=== PATIENT | female | born 1945 | race Hispanic/Latino ===

== ENCOUNTER → 2018-03-20 | Outpatient (CLI) | payer OTHER ==
[~2018-03-20] MED LIST: AEC81 PO; CARBIDOPA-LEVODOPA PO; DIAZ2TAB3 PO; DROX100C PO; IOPAMIDOL-370 75 ML VIAL IV ONE
== END | disposition home or self-care (01) ==
LOC: OIH 10:25
PROVIDERS: ATTEND Internal Medicine
DX: N28.1 Cyst of kidney, acquired (principal); Z90.49 Acquired absence of other specified parts of digestive tract
CPT/HCPCS: 74170; Q9967

== ENCOUNTER → 2018-06-29 | Outpatient (CLI) | payer OTHER ==
[~2018-06-29] MED LIST changes: -IOPAMIDOL-370 75 ML VIAL IV ONE
== END | disposition home or self-care (01) ==
LOC: RAH 13:48
PROVIDERS: ATTEND Internal Medicine
DX: M47.896 Other spondylosis, lumbar region (principal); M85.88 Other specified disorders of bone density and structure, other site; M51.36 Other intervertebral disc degeneration, lumbar region; G57.02 Lesion of sciatic nerve, left lower limb; M19.90 Unspecified osteoarthritis, unspecified site; K21.9 Gastro-esophageal reflux disease without esophagitis; Z90.49 Acquired absence of other specified parts of digestive tract
CPT/HCPCS: 72100

== ENCOUNTER 2019-07-23 06:46 | Day surgery (SDC) | payer OTHER ==
[2019-07-22 15:53] LABS: BASOPHILS % (AUTO) 0.7 % (0.0-5.0); EOSINOPHILS % (AUTO) 1.3 % (0.0-8.0); LYMPHOCYTES % (AUTO) 22.1 % (21.0-51.0); MEAN CORPUSCULAR HEMOGLOBIN 32.7 pg (27.0-33.0); MEAN CORPUSCULAR HGB CONC 33.9 g/dL (32.0-36.0); MEAN CORPUSCULAR VOLUME 96.4 fL (79-99); MONOCYTES % (AUTO) 8.8 % (3.0-13.0); NEUTROPHILS % (AUTO) 67.1 % (40.0-77.0); NUCLEATED RED BLOOD CELLS 0.1 % (0.0-0.19); PLATELET COUNT (AUTO) 288 K/uL (130-400); RED BLOOD CELL COUNT(AUTO) 4.15 MIL/uL (4.00-5.50); RED CELL DISTRIBUTION WIDTH 14.3 % (11.0-15.5); WHITE BLOOD COUNT (AUTO) 7.6 K/uL (4.8-10.8)
[2019-07-22 16:05] LABS: CREATININE 0.7 mg/dL (0.5-1.5); POTASSIUM 4.1 mmol/L (3.5-5.1)
[2019-07-22 16:23] VITALS: BP 132/51
[2019-07-22] MEDS: CEFAZOLIN SODIUM 1 GM VIAL IVP SCH (17:45)
--- NOTE | 2019-07-22 18:13 | NUR ---
NOTE PT TAKING ANTIBIOTIC (CANNOT RECALL NAME) PRESCRIBED BY PCP FOR FREQ URINATION, ?UTI. PT AFEBRILE, WBC 7.6. DR. FERRARI NOTIFIED. NO FURTHER ORDERS GIVEN, MAY PROCEED WITH PLANNED PROCEDURE.
[2019-07-23] VITALS (14 sets, daily range): BP systolic 112–146; BP diastolic 48–73
[~2019-07-23] VITALS: Ht 149.9 cm; Wt 62.0 kg
[~2019-07-23 06:46] MED LIST changes: +ANTIBIOTIC PO; +CARB-38 PO; -CARBIDOPA-LEVODOPA PO; -DIAZ2TAB3 PO; +DIGO125T87 PO; +LEVO25TA54 PO; +LINA72CA PO; +ROTI1PAT10 TD
[2019-07-23] MEDS ORDERED: LACTATED RINGERS 1000ML 1,000 ML IV ONE (07:13)
[2019-07-23] MEDS ORDERED: AMOX1TAB15 PO (07:58)
[2019-07-23] MEDS ORDERED: GLYCOPYRROLATE 1 MG/5 ML SYRINGE ONE (09:28)
[2019-07-23] MEDS ORDERED: SUCCINYLCHOLINE 200MG/10ML SYR ONE (09:28)
[2019-07-23] MEDS ORDERED: PROPOFOL 10 MG/ML 20ML VIAL IV ONE (09:28)
[2019-07-23] MEDS ORDERED: LIDOCAINE PF 2% 5ML ABBOJECT ONE (09:28)
[2019-07-23] MEDS ORDERED: NEOSTIGMINE 5MG/5ML SYR IV ONE (09:28)
[2019-07-23] MEDS ORDERED: DEXAMETHASONE SOD PHOSPHATE 10MG/ML 1ML VIAL ONE (09:28)
[2019-07-23] MEDS ORDERED: FENTANYL CITRATE PF 50 MCG/1 ML 2ML VIAL ONE (09:29)
[2019-07-23] MEDS ORDERED: ROCURONIUM 10MG/1ML SYR 10 MG/ML ML ONE (09:29)
[2019-07-23] MEDS: CEFAZOLIN SODIUM 1 GM VIAL IVP SCH (09:30)
[2019-07-23] MEDS ORDERED: MELO-106 PO (10:43)
[2019-07-23] MEDS ORDERED: TRAM1TAB PO (10:43)
[2019-07-23] MEDS ORDERED: MEPERIDINE-PF 25 MG/ML SYG ONE (11:02)
--- NOTE | 2019-07-23 11:33 | NUR ---
ASSESSMENT RECEIVED PT FROM PACU STAFF HANSA VILLA. PT AAOX3. DRSG TO RIGHT KNEE DRY AND INTACT. NO BLEEDING, OOZING NOTED TO SITE. ICE PACK APPLIED TO RIGHT KNEE. AT BEDSIDE.
--- NOTE | 2019-07-23 12:20 | NUR ---
DISCHARGE ORAL AND WRITTEN DISCHARGE INSTRUCTIONS GIVEN TO PT AND PTS ALONG WITH PRESCRIPTION. DRSG TO RIGHT KNEE DRY AND INTACT. NO BLEEDING, OOZING NOTED TO SITE. NO OTHER QUESTIONS AT THIS TIME.
== END 2019-07-23 12:25 | disposition home or self-care (01) ==
LOC: DAH 06:46
PROVIDERS: ATTEND Orthopaedic Surgery
DX: M23.8X1 Other internal derangements of right knee (principal); M23.221 Derangement of posterior horn of medial meniscus due to old tear or injury, right knee; K21.9 Gastro-esophageal reflux disease without esophagitis; G20 Parkinson's disease; G89.29 Other chronic pain; I48.0 Paroxysmal atrial fibrillation; Z79.82 Long term (current) use of aspirin; Z79.899 Other long term (current) drug therapy; Z90.49 Acquired absence of other specified parts of digestive tract; Z98.890 Other specified postprocedural states
CPT/HCPCS: 29881; 36415; 80048; 85025; A4215; A4221; A4222; A4223; A4606; A4649 ×2; A4663; A4930; A5120; A6223; J0330; J0690; J1100; J2001; J2175; J2704; J2710; J3010; J3490; J7120

== ENCOUNTER → 2020-01-14 | Outpatient (CLI) | payer OTHER ==
[~2020-01-14] MED LIST changes: +AMINOPHYLLINE 250MG/10 ML VIAL IV SCH; +AMOX1TAB15 PO; -ANTIBIOTIC PO; +DIGO125T71 PO; -DIGO125T87 PO; +MELO-106 PO; +REGADENOSON 0.4 MG/5 ML PF SYG IVP SCH; +TRAM1TAB PO
[2020-01-14 10:37] VITALS: BP 129/64
[2020-01-14 10:41] VITALS: BP 125/65
[2020-01-14 10:42] VITALS: BP 129/68
[2020-01-14 10:44] VITALS: BP 125/70
--- NOTE | 2020-01-14 11:58 | NUR ---
UPON COMPLETION OF LEXISCAN PROCEDURE, PT CONTINUED WITH C/O PRESSURE TO CHEST AND THROAT. AMINOPHYLLINE 50 MG WAS GIVEN SLOW IV PUSH PER PROTOCOL AT 1041. OF 1045 PT REPORTS ALL PRESSURE TO THROAT AND CHEST IS GONE AND IS FEELING MUCH BETTER.
== END | disposition home or self-care (01) ==
LOC: SHCH 08:17
PROVIDERS: ATTEND Internal Medicine Cardiovascular Disease
DX: I20.8 Other forms of angina pectoris (principal)
CPT/HCPCS: 78452; 93017; 96374; A9500 ×2; J0280; J2785

== ENCOUNTER → 2021-05-11 | Outpatient (CLI) | payer OTHER ==
[~2021-05-11] MED LIST changes: -AMINOPHYLLINE 250MG/10 ML VIAL IV SCH; -REGADENOSON 0.4 MG/5 ML PF SYG IVP SCH
== END | disposition home or self-care (01) ==
LOC: SHCH 12:30
PROVIDERS: ATTEND Internal Medicine Cardiovascular Disease
DX: I48.0 Paroxysmal atrial fibrillation (principal)
CPT/HCPCS: 93306; 93356

== ENCOUNTER → 2021-05-14 | Outpatient (CLI) | payer OTHER | END | disposition home or self-care (01) | LOC: SHCH 14:04 | PROVIDERS: ATTEND Internal Medicine Cardiovascular Disease | DX: I87.2 Venous insufficiency (chronic) (peripheral) (principal) | CPT/HCPCS: 93970 ==

== ENCOUNTER 2021-10-11 06:26 | Day surgery (SDC) | payer OTHER ==
[2021-10-10 12:33] LABS: HEMATOCRIT 41.2 % (36-48); LYMPHOCYTES % (AUTO) 34.7 % (21.0-51.0); MEAN CORPUSCULAR HEMOGLOBIN 31.4 pg (27.0-33.0); MEAN CORPUSCULAR VOLUME 98.1 fL (79-99); MONOCYTES % (AUTO) 11.5 % (3.0-13.0); NEUTROPHILS % (AUTO) 51.5 % (40.0-77.0); PLATELET COUNT (AUTO) 350 K/uL (130-400); RED CELL DISTRIBUTION WIDTH 13.5 % (11.0-15.5); WHITE BLOOD COUNT (AUTO) 5.9 K/uL (4.8-10.8)
[2021-10-10 12:35] VITALS: BP 138/53
[2021-10-10 12:54] LABS: CREATININE 0.6 mg/dL (0.5-1.5); POTASSIUM 4.6 mmol/L (3.5-5.1)
[~2021-10-11] VITALS: Ht 152.4 cm; Wt 64.9 kg
[2021-10-11] VITALS (15 sets, daily range): BP systolic 124–149; BP diastolic 55–74
[~2021-10-11 06:26] MED LIST changes: -AMOX1TAB15 PO; -DROX100C PO; +ENTA200T5 PO; +EZET10TA48 PO; -LINA72CA PO; -MELO-106 PO; -TRAM1TAB PO; +[UNRECOGNIZED DRUG - CODE] PO
[2021-10-11] MEDS ORDERED: LACTATED RINGERS 1000ML 1,000 ML IV ONE (07:45)
[2021-10-11] MEDS ORDERED: CEFAZOLIN SODIUM 1 GM VIAL IVP ONE (08:00)
[2021-10-11] MEDS ORDERED: NEOSTIGMINE 5MG/5ML SYR IV ONE (09:03)
[2021-10-11] MEDS ORDERED: ONDANSETRON 4MG INJ ONE (09:03)
[2021-10-11] MEDS ORDERED: SUCCINYLCHOLINE CHLORIDE 20 MG/ML 10 ML VIAL ONE ×2 (09:03→09:04)
[2021-10-11] MEDS ORDERED: DEXAMETHASONE SOD PHOSPHATE 10MG/ML 1ML VIAL ONE (09:03)
[2021-10-11] MEDS ORDERED: MIDAZOLAM HCL 1 MG/ML 2ML VIAL ONE (09:03)
[2021-10-11] MEDS ORDERED: PROPOFOL 10 MG/ML 20ML VIAL IV ONE (09:03)
[2021-10-11] MEDS ORDERED: GLYCOPYRROLATE 1 MG/5 ML SYRINGE ONE (09:03)
[2021-10-11] MEDS ORDERED: FENTANYL CITRATE PF 50 MCG/1 ML 2ML VIAL ONE (09:03)
[2021-10-11] MEDS ORDERED: LIDOCAINE PF 100MG/5ML (2%) SYRINGE 5ML ONE ×2 (09:03→09:04)
[2021-10-11] MEDS ORDERED: ROCURONIUM 10MG/1ML SYR 10 MG/ML ML ONE (09:04)
[2021-10-11] MEDS ORDERED: CEPH500B PO (10:02)
[2021-10-11] MEDS ORDERED: ACET1TAB25 PO (10:02)
== END 2021-10-11 11:26 | disposition home or self-care (01) ==
LOC: DAH 06:26
PROVIDERS: ATTEND Orthopaedic Surgery
DX: M25.562 Pain in left knee (principal); M23.222 Derangement of posterior horn of medial meniscus due to old tear or injury, left knee; M94.262 Chondromalacia, left knee; M17.11 Unilateral primary osteoarthritis, right knee; K21.9 Gastro-esophageal reflux disease without esophagitis; G20 Parkinson's disease; Z79.82 Long term (current) use of aspirin; Z79.899 Other long term (current) drug therapy; Z72.89 Other problems related to lifestyle; Z90.49 Acquired absence of other specified parts of digestive tract; Z98.890 Other specified postprocedural states; Z90.710 Acquired absence of both cervix and uterus; Z20.822 Contact with and (suspected) exposure to COVID-19
CPT/HCPCS: 29881; 36415; 80048; 85025; 87635; A4215; A4221; A4222; A4223; A4649; A4663; A4930 ×2; A5120; A6223; C9803; J0330 ×2; J0690 ×2; J1100; J2001 ×2; J2405; J2704; J2710; J3010; J3490; J7120; J2250

== ENCOUNTER → 2022-12-06 | Outpatient (CLI) | payer OTHER | END | disposition home or self-care (01) | LOC: SHCH 10:45 | PROVIDERS: ATTEND Internal Medicine Cardiovascular Disease | DX: I87.2 Venous insufficiency (chronic) (peripheral) (principal); M79.605 Pain in left leg; M79.604 Pain in right leg | CPT/HCPCS: 93970 ==

== ENCOUNTER 2023-01-20 06:15 | Day surgery (SDC) | payer OTHER ==
[2023-01-16 12:45] LABS: BASOPHILS % (AUTO) 0.8 % (0.0-5.0); EOSINOPHILS % (AUTO) 1.5 % (0.0-8.0); HEMATOCRIT 38.7 % (36-48); LYMPHOCYTES % (AUTO) 24.8 % (21.0-51.0); MEAN CORPUSCULAR HEMOGLOBIN 32.9 pg (27.0-33.0); MEAN CORPUSCULAR HGB CONC 33.3 g/dL (32.0-36.0); MEAN CORPUSCULAR VOLUME 98.7 fL (79-99); MONOCYTES % (AUTO) 11.8 % (3.0-13.0); NEUTROPHILS % (AUTO) 60.8 % (40.0-77.0); PLATELET COUNT (AUTO) 284 K/uL (130-400); RED BLOOD CELL COUNT(AUTO) 3.92 MIL/uL (4.00-5.50); RED CELL DISTRIBUTION WIDTH 13.2 % (11.0-15.5); WHITE BLOOD COUNT (AUTO) 6.2 K/uL (4.8-10.8)
[2023-01-16 12:48] VITALS: BP 126/61
[2023-01-16 12:50] LABS: CREATININE 0.7 mg/dL (0.5-1.5); POTASSIUM 4.5 mmol/L (3.5-5.1)
[2023-01-16 12:53] LABS: INR 0.97 (0.85-1.15); PROTHROMBIN TIME 10.6 SEC (9.6-11.6)
[2023-01-16 12:54] LABS: PARTIAL THROMBOPLASTIN TIME 27.5 SEC (26.3-35.5)
[~2023-01-20] VITALS: Ht 152.4 cm; Wt 67.1 kg
[~2023-01-20 06:15] MED LIST changes: -ROTI1PAT10 TD
[2023-01-20 06:24] VITALS: BP 120/62
[2023-01-20] MEDS ORDERED: 0.9%NACL 1000ML 1,000 ML IV ONE (07:08)
[2023-01-20] MEDS ORDERED: MIDAZOLAM HCL 1 MG/ML 2ML VIAL ONE (08:46)
[2023-01-20] MEDS ORDERED: MEPERIDINE-PF 25 MG/ML SYG ONE (08:46)
[2023-01-20] MEDS ORDERED: LIDOCAINE HCL 400MG/20ML VIAL ONE (08:46)
[2023-01-20] MEDS ORDERED: BUPIVACAINE/PF 0.25% 10ML VIAL IJ ONE (09:34)
[2023-01-20 10:00] VITALS: BP 152/65
[2023-01-20 10:15] VITALS: BP 146/66
[2023-01-20 10:30] VITALS: BP 139/61
== END 2023-01-20 10:30 | disposition home or self-care (01) ==
LOC: DAH 06:15
PROVIDERS: ATTEND Internal Medicine Cardiovascular Disease
DX: R00.2 Palpitations (principal); R06.02 Shortness of breath; I47.1 Supraventricular tachycardia; R55 Syncope and collapse; I48.0 Paroxysmal atrial fibrillation; G20 Parkinson's disease; I87.2 Venous insufficiency (chronic) (peripheral); K21.9 Gastro-esophageal reflux disease without esophagitis; Z98.890 Other specified postprocedural states; Z90.49 Acquired absence of other specified parts of digestive tract; Z90.710 Acquired absence of both cervix and uterus; Z90.721 Acquired absence of ovaries, unilateral; Z82.49 Family history of ischemic heart disease and other diseases of the circulatory system; Z83.3 Family history of diabetes mellitus; Z82.61 Family history of arthritis; Z79.01 Long term (current) use of anticoagulants
CPT/HCPCS: 80048; 85025; 85610; 85730; 36415; 93005; 33285; A4649; C1764; J3490 ×2; J7030; J2250; J2175; A4215; A6402; A4222; A4221; A4663; A4216; A6206; A4606; A4223 ×3

== ENCOUNTER → 2023-01-25 | Outpatient (CLI) | payer OTHER | END | disposition home or self-care (01) | LOC: SHCH 09:55 | PROVIDERS: ATTEND Internal Medicine Cardiovascular Disease | DX: I35.1 Nonrheumatic aortic (valve) insufficiency (principal); I51.7 Cardiomegaly; R94.31 Abnormal electrocardiogram [ECG] [EKG] | CPT/HCPCS: 93306 ==

== ENCOUNTER → 2023-03-10 | Outpatient (CLI) | payer OTHER | END | disposition home or self-care (01) | LOC: SHCH 13:12 | PROVIDERS: ATTEND Internal Medicine Cardiovascular Disease | DX: I87.2 Venous insufficiency (chronic) (peripheral) (principal); Z98.890 Other specified postprocedural states | CPT/HCPCS: 93971 ==

== ENCOUNTER → 2023-05-09 | Outpatient (CLI) | payer OTHER ==
[2023-05-09 15:18] LABS: BASOPHILS # (AUTO) 0.03 K/uL (0.00-0.20); BASOPHILS % (AUTO) 0.4 % (0.0-5.0); EOSINOPHILS # (AUTO) 0.09 K/uL (0.00-0.70); EOSINOPHILS % (AUTO) 1.3 % (0.0-8.0); HEMATOCRIT 38.6 % (36-48); IMMATURE GRANULOCYTE ABSOLUTE 0.02 K/uL (0-1); LYMPHOCYTES # (AUTO) 1.6 K/uL (1.0-4.8); LYMPHOCYTES % (AUTO) 24.5 % (21.0-51.0); MEAN CORPUSCULAR HEMOGLOBIN 32.3 pg (27.0-33.0); MEAN CORPUSCULAR HGB CONC 32.4 g/dL (32.0-36.0); MEAN CORPUSCULAR VOLUME 99.7 fL (79-99); MONOCYTES # (AUTO) 0.6 K/uL (0.1-1.0); MONOCYTES % (AUTO) 8.7 % (3.0-13.0); NEUTROPHILS # (AUTO) 4.3 K/uL (1.8-7.7); NEUTROPHILS % (AUTO) 64.8 % (40.0-77.0); PLATELET COUNT (AUTO) 283 K/uL (130-400); RED BLOOD CELL COUNT(AUTO) 3.87 MIL/uL (4.00-5.50); RED CELL DISTRIBUTION WIDTH 13.2 % (11.0-15.5); WHITE BLOOD COUNT (AUTO) 6.7 K/uL (4.8-10.8)
[2023-05-09 15:26] LABS: CREATININE 0.8 mg/dL (0.5-1.5)
[2023-05-09 15:31] LABS: INR 0.93 (0.85-1.15); PROTHROMBIN TIME 10.8 SEC (9.6-11.6)
[2023-05-09 15:33] LABS: PARTIAL THROMBOPLASTIN TIME 27.8 SEC (26.3-35.5)
== END | disposition home or self-care (01) ==
LOC: LAB 13:39
PROVIDERS: ATTEND Internal Medicine Cardiovascular Disease
DX: I87.1 Compression of vein (principal); I87.2 Venous insufficiency (chronic) (peripheral); M79.89 Other specified soft tissue disorders; R60.0 Localized edema
CPT/HCPCS: 36415; 80048; 85025; 85610; 85730

== ENCOUNTER → 2023-11-05 | Outpatient (CLI) | payer OTHER ==
[2023-11-05 16:13] LABS: BASOPHILS # (AUTO) 0.05 K/uL (0.00-0.20); BASOPHILS % (AUTO) 0.7 % (0.0-5.0); EOSINOPHILS # (AUTO) 0.08 K/uL (0.00-0.70); EOSINOPHILS % (AUTO) 1.1 % (0.0-8.0); IMMATURE GRANULOCYTE ABSOLUTE 0.03 K/uL (0-1); LYMPHOCYTES # (AUTO) 1.9 K/uL (1.0-4.8); LYMPHOCYTES % (AUTO) 25.5 % (21.0-51.0); MEAN CORPUSCULAR HEMOGLOBIN 32.2 pg (27.0-33.0); MEAN CORPUSCULAR HGB CONC 31.4 g/dL (32.0-36.0); MEAN CORPUSCULAR VOLUME 102.4 fL (79-99); MONOCYTES # (AUTO) 0.7 K/uL (0.1-1.0); MONOCYTES % (AUTO) 10.2 % (3.0-13.0); NEUTROPHILS # (AUTO) 4.5 K/uL (1.8-7.7); NEUTROPHILS % (AUTO) 62.1 % (40.0-77.0); PLATELET COUNT (AUTO) 319 K/uL (130-400); RED CELL DISTRIBUTION WIDTH 12.9 % (11.0-15.5); WHITE BLOOD COUNT (AUTO) 7.3 K/uL (4.8-10.8)
[2023-11-05 16:23] LABS: INR <= 0.93 (0.85-1.15); PROTHROMBIN TIME 10.5 SEC (9.6-11.6)
[2023-11-05 16:24] LABS: PARTIAL THROMBOPLASTIN TIME 27.5 SEC (26.3-35.5)
[2023-11-05 16:27] LABS: CREATININE 0.7 mg/dL (0.5-1.5); POTASSIUM 5.1 mmol/L (3.5-5.1)
== END | disposition home or self-care (01) ==
LOC: LAB 13:18
PROVIDERS: ATTEND Internal Medicine Cardiovascular Disease
DX: I87.2 Venous insufficiency (chronic) (peripheral) (principal); I87.1 Compression of vein; R60.9 Edema, unspecified; M79.89 Other specified soft tissue disorders; Z79.02 Long term (current) use of antithrombotics/antiplatelets; Z79.899 Other long term (current) drug therapy
CPT/HCPCS: 36415; 80048; 85025; 85610; 85730

== ENCOUNTER → 2024-12-18 | Outpatient (CLI) | payer OTHER ==
--- NOTE | 2024-12-19 09:04 | HMCSR ---
APPROVED REPORT EXAM: Two-dimensional and M-mode echocardiogram with Doppler and color Doppler. INDICATION ICD: I95.1 Orthostatic Hypotension 2D Dimensions RVDd3.0 cmLVEF(%)58.6 (>50%)LVED Vol(simp.)59.0 mL IVSd1.1 (0.7-1.1cm)FS(%)30 %LVES Vol(simp.)25.0 mL LVDd3.8 (3.8-5.6cm)Ao Root(2D)2.6 (2.0-3.7cm)LVEF(%, simp.)59 % PWd0.9 (0.7-1.1cm)LVOT diam1.7 (1.8-2.4cm)LA ESV INDEX (BP)42.69 mL/m2 LVDs2.6 (2.5-4.0cm)IVC diam1.7 cm Aortic Valve AoV Vmax2.0 m/Paul Peak GR16.4 mmHgLVOT Vmax1.4 m/s AoV VTI0.4 mAo Mean GR7.4 mmHgLVOT VTI0.31 m EFRAIN (VMAX)1.7 cm2Al P1/2T419 msAVA (VTI) 1.7 cm2 Mitral Valve MV E Vmax61.2 cm/sDECEL Lrey709 ms MV A Vmax72.7 cm/sP 1/2 T52 ms E/A ratio0.8MVA (PHT)4.2 cm2 MR Max PG61 mmHg TDI E/E' Kfbjer63.0E/E' Lateral8.5 Pulmonary Valve PV Vmax1.0 m/sPV VTI0.20 mPV Mean GR2 mmHg PV Peak GR3.6 mmHgPI End Sandra. Sandoval 1.0 cm/s Tricuspid Valve TR Vmax2.6 m/sRAP (EST) 3 tgHdJBBP20.5 mmHg TR Peak GR26.5 mmHg Left Ventricle Left ventricular cavity size is normal. Sigmoid septum is present. LVEF is 55-60%. Diastolic function is indeterminate. Right Ventricle The right ventricle is normal size. The right ventricular systolic function is normal. Atria The left atrium is moderately dilated. The right atrium is mildly dilated. Aortic Valve Aortic valve is trileaflet. Aortic valve leaflets are sclerotic but open well. Moderate aortic regurg itation. Calculated aortic valve area is 1.7 cm2 with maximum pressure gradient of 16.4 mmHg and mean pressure gradient of 7.4 mmHg. There is no aortic valvular stenosis. Mitral Valve Mitral valve leaflets are mildly sclerotic but open well. Mitral regurgitation is trace. There is no mitral valve stenosis. Tricuspid Valve The tricuspid valve leaflets appear normal. There is trace tricuspid regurgitation. Right ventricular systolic pressure is estimated at 30 mmHg. Pulmonic Valve Pulmonic valve is not well visualized. There is trace pulmonic valvular regurgitation. Great Vessels The aortic root is normal in size. The IVC is normal in size and collapses >50% with inspiration. Pericardium There is a small loculated posterior pericardial effusion. Other Information Quality : GoodRhythm : NSR Conclusion LVEF is 55-60%. Sigmoid septum is present. Diastolic function is indeterminate. The left atrium is moderately dilated. Moderate aortic regurgitation. Mitral regurgitation is trace. There is a small loculated posterior pericardial effusion.
== END | disposition home or self-care (01) ==
LOC: SHCH 13:53
PROVIDERS: ATTEND Internal Medicine Cardiovascular Disease
DX: I08.0 Rheumatic disorders of both mitral and aortic valves (principal); I31.39 Other pericardial effusion (noninflammatory); I95.1 Orthostatic hypotension; I47.0 Re-entry ventricular arrhythmia
CPT/HCPCS: 93306